=== PATIENT | male | born 1965 | race Two or more races ===

== ENCOUNTER 2017-07-16 01:46 | Inpatient (IN) | payer MEDICAID, OTHER ==
[~2017-07-16] VITALS: Ht 167.6 cm; Wt 63.5 kg
[2017-07-17 02:05] VITALS: BP 145/75
--- NOTE | 2017-07-17 02:05 | NUR ---
LEAD MACHINIST OPENING NOTES: RECEIVED PT AND IS ON ROOM AIR AND TOLERATING WELL. PT TO BE PLACED ON TELE BOX. PT IS MOHAWK SPEAKING ONLY. PT IS A/OX4. PT HAS IV ON L FOREARM #20G AND IS PATENT AND INTACT. CURRENTLY S/L. CALL LIGHT WITHIN PT'S REACH. BED KEPT IN LOW, LOCKED POSITION, AND SIDE RAILS X 2UP. WILL CONTINUE TO MONITOR PT.
[2017-07-17] MEDS ORDERED: METO-295 PO (02:38)
[2017-07-17] MEDS ORDERED: METF-440 PO (02:38)
[2017-07-17] MEDS ORDERED: FAMO-131 PO (02:38)
[2017-07-17] MEDS ORDERED: TRAM50TA2 PO (02:38)
--- NOTE | 2017-07-17 02:40 | NUR ---
SAYRA SIGALA NOTES: NOTIFIED DR. JASMIN ROD THAT PT IS HERE. AWAITING FOR ADMITTING ORDERS. Addendum: 07/17/17 at 0259 by ANDREA BRAVO RN DR. JASMIN ROD AWARE THAT PT IS HERE.
[2017-07-17 04:00] VITALS: BP 120/71
[2017-07-17] MEDS ORDERED: ZOLPIDEM TARTRATE 5 MG TABLET PO PRN (04:00)
[2017-07-17] MEDS ORDERED: Z GUARD REMEDY 2 OZ OINT TP PRN (04:00)
[2017-07-17] MEDS ORDERED: MORPHINE SULFATE INJ 2 MG/ML DISP.SYRIN IV PRN (04:00)
[2017-07-17] MEDS ORDERED: MAGNESIUM HYDROXIDE 30 ML UDC PO PRN (04:00)
[2017-07-17] MEDS ORDERED: ACETAMINOPHEN 325 MG TABLET PO PRN (04:00)
[2017-07-17 04:09] LABS: BASOPHILS % (AUTO) 0.4 % (0.0-2.0); EOSINOPHILS % (AUTO) 1.1 % (0.0-6.0); HEMATOCRIT 37 % (39-51); HEMOGLOBIN 12.6 g/dL (13.5-17.5); LYMPHOCYTES # (AUTO) 2.3 /CMM (0.8-4.8); LYMPHOCYTES % (AUTO) 36.8 % (20.0-44.0); MEAN CORPUSCULAR HGB CONC 34 g/dl (31.0-36.0); MEAN CORPUSCULAR VOLUME 90 fL (80-96); MONOCYTES # (AUTO) 0.5 /CMM (0.1-1.30); MONOCYTES % (AUTO) 7.9 % (2.0-12.0); NEUTROPHILS # (AUTO) 3.3 /CMM (1.8-8.9); NEUTROPHILS % (AUTO) 53.8 % (43.0-81.0); PLATELET COUNT (AUTO) 187 /CMM (150-450); RDW COEFFICIENT OF VARIATION 12.4 (11.5-15.0); RED BLOOD CELL COUNT(AUTO) 4.06 MIL/uL (4.5-6.0); WHITE BLOOD COUNT (AUTO) 6.2 K/uL (4.3-11.0)
[2017-07-17 04:22] LABS: CALCIUM, SERUM 8.7 mg/dL (8.5-10.1); CARBON DIOXIDE 26 mmol/L (21-32); CHLORIDE 105 mmol/L (98-107); CREATININE 0.9 mg/dL (0.6-1.3); GLUCOSE 114 mg/dL (74-106); POTASSIUM 4.3 mmol/L (3.5-5.1); SODIUM SERUM 139 mmol/L (136-145); UREA NITROGEN, BLOOD 21 mg/dL (7-18)
[2017-07-17 04:27] LABS: ALANINE AMINOTRANSFERASE 14 U/L (12-78); ALBUMIN 3.3 g/dL (3.4-5.0); ALKALINE PHOSPHATASE 52 U/L (46-116); ASPARTATE AMINOTRANSFERASE 13 U/L (15-37); BILIRUBIN,TOTAL 0.4 mg/dL (0.2-1.0); LIPASE 548 U/L (73-393); PHOSPHORUS 3.7 mg/dL (2.5-4.9); TOTAL PROTEIN, SERUM 6.5 g/dL (6.4-8.2)
[2017-07-17 04:29] LABS: TROPONIN I < 0.017 ng/mL (0.00-0.056)
[2017-07-17 04:47] LABS: CHOLESTEROL 140 mg/dL (<200); HDL CHOLESTEROL 45 mg/dL (40-60); LDL 89 mg/dL (0-99); TRIGLYCERIDES 92 mg/dL (30-150)
--- NOTE | 2017-07-17 06:40 | NUR ---
SAYRA SIGALA NOTES: DR. JASMIN ROD AWARE OF ELEVATED LIPASE. Addendum: 07/17/17 at 0640 by ANDREA BRAVO RN NO NEW ORDERS AT THIS TIME.
--- NOTE | 2017-07-17 06:49 | NUR ---
PSYCHIATRIC ARNP CLOSING NOTES: ALL NEEDS WERE ATTENDED AND ANTICIPATED FOR. PT ON ROOM AIR AND TOLERATING WELL. PT ASLEEP AT THIS TIME. IV REMAINS IN TACT AND IS CURRENTLY S/L. PT ON TELE BOX AND READING SHOWS SR 60S. CALL LIGHT WITHIN PT'S REACH. BED KEPT IN LOW, LOCKED POSITION, AND SIDE RAILS X 2UP. WILL ENDORSE TO AM NURSE FOR DANNY.
[2017-07-17 08:00] VITALS: BP 125/83
--- NOTE | 2017-07-17 08:20 | NUR ---
FRUIT GROWER/OPENING NOTES RECEIVED PT. IN BED A&OX4. TELE MONITOR READING SINUS RHYTHM 72 BPM. PT. BREATHING UNLABORED, AND EVENLY ON ROOM AIR. NO S/S OF ACUTE DISTRESS. PT. C/O PAIN WORSENING 3/10 IN CHEST, AND ABDOMINAL REGION WITH ACTIVITY. PT. REPORTED HE RECEIVED NEWS THAT ONE OF HIS FAMILY MEMBERS PASSES AWAY. BED IS IN LOWEST, AND LOCKED POSITION. 2 SIDE RAIL UP, AND INSTRUCTED PT. TO USE CALL LIGHT FOR ASSISTANCE. ALL NEEDS MET. WILL CONTINUE TO ASSESS AND MONITOR. NO NEW ORDERS PER FLOAT TENDER.
[2017-07-17] MEDS ORDERED: LIDOCAINE HCL/PF 1% 30 ML SDV ONE (09:10)
[2017-07-17] MEDS: IV NS 0.9% 1,000 ML IV PRN ×2 (09:22→20:36)
[2017-07-17] MEDS: FAMOTIDINE (20 MG) 20 MG TABLET PO SCH ×2 (10:17→17:11)
[2017-07-17] MEDS: METOCLOPRAMIDE HCL 10 MG TABLET PO SCH ×2 (10:18→17:11)
[2017-07-17] MEDS: TRAMADOL HCL 50 MG TABLET PO SCH ×2 (10:18→17:14)
[2017-07-17] MEDS: ASPIRIN EC 81 MG TABLET.DR PO SCH (10:18)
[2017-07-17] MEDS: ENOXAPARIN SODIUM 40 MG/0.4 ML DISP.SYRIN SQ SCH (10:20)
[2017-07-17] MEDS: LOSARTAN POTASSIUM 50 MG TABLET PO SCH (10:20)
--- NOTE | 2017-07-17 10:36 | NUR ---
RN NOTES PT. HAS AN ULTRASOUND OF THE ABDOMEN COMPLETED. PT. TOLERATED PROCEDURE WELL.
--- NOTE | 2017-07-17 10:44 | NUR ---
CONSENT FOR CTA WAS SIGNED BY PATIENT. PT. DENIED ALLERGIES TO IODINE, AND SHELLFISH. PT. WAS PROVIDED THE RISKS AND BENEFITS FOR PROCEDURE, AND VERBALIZED UNDERSTANDING.
--- NOTE | 2017-07-17 14:00 | NUR ---
RN NOTES INSERTED NEW IV GAUGE 18 ON LEFT ANTECUBITAL, FLUSHED WITH SALINE, AND JAE BLOOD BACK. AFTER SECURING IV WITH TAPE, IV DID NOT FLUSH, AND COULD NOT GET A BLOOD RETURN. REMOVED IV IMMEDIATELY AFTER.
[2017-07-17 16:00] VITALS: BP 126/82
--- NOTE | 2017-07-17 19:35 | NUR ---
MS RN OPENING NOTES: PATIENT IN BED, AOX4, ON ROOM AIR, BREATHING EVEN AND UNLABORED. BREATH SOUDNS CLEAR TO AUSCULTATION. APPEARS CALM, IN NO DISTRESS, BUT DOES COMPLAIN OF ABDOMINAL PAIN LOCATED OVER MID UPPER TO LUQ SCALED AT 6-8/10, INTERMITTENT IN FREQUENCY. PATIENT COMPLAINS OF SLIGHT NAUSEA, BUT DENIES ANY VOMITING EPISODE. PIV OVER LFA G20 INTACT AND PATENT TO FLUSH. PROVIDED FOR COMFORT AND SAFETY. BED IN LOWEST AND LOCKED POSITION, SIDERAILS UP X 3, CALL LIGHT WITHIN REACH. WILL CONT TO MONITOR.
--- NOTE | 2017-07-17 19:40 | NUR ---
RN CLOSING NOTES PT. IS IN BED A&OX4. TELE MONITOR WAS DISCONTINUED TODAY. PT. IS BREATHING UNLABORED, AND EVENLY ON ROOM AIR. NO S/S OF ACUTE DISTRESS. BED IS IN LOWEST, AND LOCKED POSITION. PT. DID NOT HAVE CTA OF THE HEART TODAY. 2 SIDE RAILS UP, AND INSTRUCTED PT. TO USE CALL LIGHT FOR ASSISTANCE. ALL NEEDS MET. WILL ENDORSE REPORT TO NURSE.
[2017-07-17 20:00] VITALS: BP 133/77
[2017-07-17] MEDS: ONDANSETRON HCL/PF 4 MG/2 ML VIAL IVP PRN (20:31)
--- NOTE | 2017-07-17 20:31 | NUR ---
RN NOTES: ADMINISTERED MORPHINE 2 MG IV PRN FOR MID EPIGASTRIC TO LUQ PAIN SCALED AT 8/10. ALSO, ADMINISTERED ZOFRAN 4 MG IV FOR NAUSEA. WILL CONT TO MONITOR.
[2017-07-17] MEDS ORDERED: ATORVASTATIN 10 MG TABLET PO SCH (22:00)
[2017-07-18] MEDS: IV NS 0.9% 1,000 ML IV PRN (06:16)
[2017-07-18 06:45] LABS: BASOPHILS % (AUTO) 0.4 % (0.0-2.0); EOSINOPHILS % (AUTO) 1.5 % (0.0-6.0); HEMATOCRIT 36 % (39-51); HEMOGLOBIN 12.6 g/dL (13.5-17.5); LYMPHOCYTES # (AUTO) 1.8 /CMM (0.8-4.8); LYMPHOCYTES % (AUTO) 31.3 % (20.0-44.0); MEAN CORPUSCULAR HGB CONC 35 g/dl (31.0-36.0); MEAN CORPUSCULAR VOLUME 91 fL (80-96); MONOCYTES # (AUTO) 0.4 /CMM (0.1-1.30); MONOCYTES % (AUTO) 7.7 % (2.0-12.0); NEUTROPHILS # (AUTO) 3.4 /CMM (1.8-8.9); NEUTROPHILS % (AUTO) 59.1 % (43.0-81.0); PLATELET COUNT (AUTO) 181 /CMM (150-450); RDW COEFFICIENT OF VARIATION 12.3 (11.5-15.0); RED BLOOD CELL COUNT(AUTO) 4.01 MIL/uL (4.5-6.0); WHITE BLOOD COUNT (AUTO) 5.7 K/uL (4.3-11.0)
--- NOTE | 2017-07-18 06:50 | NUR ---
MS RN CLOSING NOTES PATIENT IN BED, AOX4, ON ROOM AIR, BREATHING EVEN AND UNLABORED. APPEARS CALM AND IN NO DISTRESS. DENIES NAUSEA OR ABDL PAIN AT THIS TIME. PIV OVER LFA G 20 INTACT AND INFUSING WELL WITH NS RUNNING AT 100 ML/HR. DUE MEDS GIVEN. PROVIDED FOR COMFORT AND SAFETY, BED IN LOWEST AND LOCKED POSITION, SIDERAILS UP X 3, CALL LIGHT WITHIN REACH. MAINTAINED ON NPO POST MN FOR CTA OF HEART WITH 3D IMAGE. WILL ENDORSE TO AM RN FOR DANNY.
--- NOTE | 2017-07-18 07:00 | NUR ---
MSRN OPENING NOTES. PT RECEIVED A&0X3, BELIZEAN SPEAKING, RESTING IN BED. PT NPO FROM MIDNIGHT. PT TOLERATING ROOM AIR WITHOUT RESP DISTRESS, PT DENIES PAIN AT THIS TIME. PT REPORTS MINOR NAUSEA. PT WITH F FA G 20 INTACT AND OPERATIONAL. PT BED IN LOWEST LOCKED POSITION WITH HANDRAILSX2 AND CALL TIAN WITHIN REACH. PT BRIEFED ON TODAY'S POC AND IS WITHOUT CONCERN OR COMPLAINT AT THIS TIME.
[2017-07-18 07:11] LABS: ALBUMIN 3.1 g/dL (3.4-5.0); BILIRUBIN,TOTAL 0.3 mg/dL (0.2-1.0); CALCIUM, SERUM 8.1 mg/dL (8.5-10.1); CREATININE 0.8 mg/dL (0.6-1.3); MAGNESIUM 1.8 mg/dL (1.8-2.4); PHOSPHORUS 3.8 mg/dL (2.5-4.9); POTASSIUM 4.3 mmol/L (3.5-5.1); THYROID STIMULATING HORMONE 2.041 uIU/mL (0.358-3.74); TOTAL PROTEIN, SERUM 6.4 g/dL (6.4-8.2)
[2017-07-18 08:00] VITALS: BP 111/75
[2017-07-18] MEDS: ASPIRIN EC 81 MG TABLET.DR PO SCH (08:26)
[2017-07-18 08:27] VITALS: BP 111/75
[2017-07-18] MEDS: METOCLOPRAMIDE HCL 10 MG TABLET PO SCH ×2 (08:27→16:31)
[2017-07-18] MEDS: LOSARTAN POTASSIUM 50 MG TABLET PO SCH (08:27)
[2017-07-18] MEDS: FAMOTIDINE (20 MG) 20 MG TABLET PO SCH ×2 (08:27→16:31)
[2017-07-18] MEDS: TRAMADOL HCL 50 MG TABLET PO SCH ×2 (08:28→16:31)
[2017-07-18] MEDS: ENOXAPARIN SODIUM 40 MG/0.4 ML DISP.SYRIN SQ SCH (08:29)
[2017-07-18] MEDS ORDERED: MORPHINE SULFATE INJ 4 MG/ML DISP.SYRIN IV PRN (09:00)
[2017-07-18] MEDS ORDERED: IOHEXOL-350 100 ML VIAL IV ONE (13:45)
[2017-07-18] MEDS ORDERED: METOPROLOL TARTRATE INJ 5 MG/5 ML AMPUL ONE (13:56)
--- NOTE | 2017-07-18 14:22 | NUR ---
ART INSTRUCTOR NOTES. PT RETURNED FROM CTA, VITALS WNL. PT WITHOUT CONCERN OR COMPLAINT.
--- NOTE | 2017-07-18 14:59 | NUR ---
CLINICAL SPECIALIST. MD POZO REQUESTING CLEAR LIQUIDS DIET TO ADVANCE TOLERATED. ORDER PLACED.
[2017-07-18] MEDS: ONDANSETRON HCL/PF 4 MG/2 ML VIAL IVP PRN (15:01)
--- NOTE | 2017-07-18 18:05 | NUR ---
TELE D/C NOTES. PT PREPARED FOR D/C PER MD. PT TOLERATING ROOM AIR WITHOUT DISTRESS AND DENIES PAIN OR DISCOMFORT AT THIS TIME. PT IVCX2 REMOVED AND NAD AT SITE. PT BRIEFED ON SOH D/C PACKET AND IS VERBALIZING UNDERSTANDING, RESOURCES AND INTENT TO FOLLOW POC. PT REQUESTING SCRIPT, MD AWARE AND IS TO WRITE SCRIPT DURING AM ROUNDS AND PT WILL P/UP AFTER 1300 07/19/17. PT EDUCATED R/T ADVANCING DIET, PT VERBALIZING UNDERSTANDING. PT WITH ALL BELONGINGS AND DOCUMENT SIGNED. PT DECLINES SKIN RE ASSESSMENT. PT LEFT WITH FAMILY WITH WHEELCHAIR ESCORT TO CAR. PT LEFT WITHOUT CONCERN OR COMPLAINT AND GRATEFUL FOR CARE.
== END 2017-07-18 17:30 | disposition home or self-care (01) | DRG 282 ==
LOC: TELE 07-17 01:52 → MED 07-17 09:56
PROVIDERS: ADMIT Nurse Practitioner Acute Care; ATTEND Nurse Practitioner Acute Care
DX: K85.90 Acute pancreatitis without necrosis or infection, unspecified (principal); E43 Unspecified severe protein-calorie malnutrition; E88.09 Other disorders of plasma-protein metabolism, not elsewhere classified; D63.8 Anemia in other chronic diseases classified elsewhere; E11.9 Type 2 diabetes mellitus without complications; F10.21 Alcohol dependence, in remission; K86.1 Other chronic pancreatitis; K29.70 Gastritis, unspecified, without bleeding; Z86.73 Personal history of transient ischemic attack (TIA), and cerebral infarction without residual deficits; Z87.891 Personal history of nicotine dependence; R79.89 Other specified abnormal findings of blood chemistry; Z68.22 Body mass index [BMI] 22.0-22.9, adult; R07.9 Chest pain, unspecified
CPT/HCPCS: 36415; 75574; 76700-TC; 80053-TC; 80061-TC; 83690-TC; 83735-TC; 84100-TC; 84443-TC; 84484-TC; 85025-TC; 87081-TC; 93307-TC; A4606; J1650; J2270; J2405; J3490; J7030; J8597; Q9967; Z7610